=== PATIENT | male | born 1955 | race African-American/Black ===

== ENCOUNTER 2017-01-17 17:37 | Emergency (ER) | payer MEDICAID ==
[~2017-01-17] VITALS: Ht 170.2 cm; Wt 79.4 kg
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
--- NOTE | 2017-01-17 18:17 | NUR ---
PATIENT WAS TAKEN TO RADIOLOGY DEPARTMENT
--- NOTE | 2017-01-17 18:40 | NUR ---
TEXTED DR. LEIVA FOR MRI APPROVAL.
[2017-01-17 18:55] LABS: BASOPHILS # (AUTO) 0.1 /CMM (0.0-0.2); EOSINOPHILS # (AUTO) 0.1 /CMM (0.0-0.7); EOSINOPHILS % (AUTO) 1.3 % (0.0-6.0); HEMATOCRIT 38 % (39-51); HEMOGLOBIN 12.8 g/dL (13.5-17.5); LYMPHOCYTES # (AUTO) 2.1 /CMM (0.8-4.8); LYMPHOCYTES % (AUTO) 31.6 % (20.0-44.0); MEAN CORPUSCULAR HEMOGLOBIN 28 PG (26.0-33.0); MEAN CORPUSCULAR HGB CONC 34 g/dl (31.0-36.0); MEAN CORPUSCULAR VOLUME 83 fL (80-96); MONOCYTES # (AUTO) 0.7 /CMM (0.1-1.30); MONOCYTES % (AUTO) 10.8 % (2.0-12.0); NEUTROPHILS # (AUTO) 3.7 /CMM (1.8-8.9); NEUTROPHILS % (AUTO) 54.3 % (43.0-81.0); PLATELET COUNT (AUTO) 224 /CMM (150-450); RDW COEFFICIENT OF VARIATION 14.2 (11.5-15.0); RED BLOOD CELL COUNT(AUTO) 4.63 MIL/uL (4.5-6.0); WHITE BLOOD COUNT (AUTO) 6.7 K/uL (4.3-11.0)
[2017-01-17 19:06] LABS: CALCIUM, SERUM 9.1 mg/dL (8.5-10.1); CREATININE 1.3 mg/dL (0.6-1.3); POTASSIUM 3.6 mmol/L (3.5-5.1)
[2017-01-17 19:10] LABS: INR 0.89 (0.87-1.13); PROTHROMBIN TIME 9.3 SECS (9.5-12.7)
[2017-01-17 21:56] VITALS: BP 168/100
--- NOTE | 2017-01-17 21:57 | NUR ---
Patient discharged to home in stable condition. Written and verbal after care instructions given. Patient verbalizes understanding of instruction.
== END 2017-01-17 21:57 | disposition home or self-care (01) ==
LOC: ER 17:38
DX: M54.2 Cervicalgia (principal); R79.1 Abnormal coagulation profile; R51 Headache; E11.9 Type 2 diabetes mellitus without complications; I10 Essential (primary) hypertension; V89.2XXA Person injured in unspecified motor-vehicle accident, traffic, initial encounter; Y93.89 Activity, other specified; Y92.89 Other specified places as the place of occurrence of the external cause; Y99.9 Unspecified external cause status
CPT/HCPCS: 36415; 70450; 71010; 72125; 72128; 72131; 72141; 80048; 85025; 85730; 86850; 96374; 99285; A4606; J1100; Z7610

== ENCOUNTER 2020-03-15 12:59 | Inpatient (IN) | payer MEDICAID, OTHER, SELFPAY ==
[~2020-03-15] VITALS: Ht 167.6 cm; Wt 85.3 kg
--- NOTE | 2020-03-15 13:15 | NUR ---
[id number], found him in the car diaphoretic,BS 36, D10 given went up to BS187. Patient a/ox3-4, breathing even and unlabored, no sob noted, needs attended, kept comfortable.
[2020-03-15] MEDS ORDERED: AMLO-213 PO (13:24)
[2020-03-15] MEDS ORDERED: BLOO-668 IN (13:24)
[2020-03-15] MEDS ORDERED: INSU100I26 SQ (13:24)
[2020-03-15] MEDS ORDERED: ASPI-1498 PO (13:24)
[2020-03-15] MEDS ORDERED: INSU100V3 SQ (13:24)
--- NOTE | 2020-03-15 13:42 | NUR ---
BLOOD DRAWN AND SENT TO LAB.
--- NOTE | 2020-03-15 13:54 | NUR ---
COVID SWAB SENT TO LAB.
[2020-03-15 14:12] LABS: BASOPHILS % (AUTO) 0.4 % (0.0-2.0); HEMATOCRIT 34 % (39-51); HEMOGLOBIN 10.9 g/dL (13.5-17.5); LYMPHOCYTES % (AUTO) 18.4 % (20.0-44.0); MEAN CORPUSCULAR HGB CONC 32 g/dl (31.0-36.0); MEAN CORPUSCULAR VOLUME 83 fL (80-96); MONOCYTES # (AUTO) 0.7 /CMM (0.1-1.30); MONOCYTES % (AUTO) 13.9 % (2.0-12.0); NEUTROPHILS # (AUTO) 3.6 /CMM (1.8-8.9); NEUTROPHILS % (AUTO) 67.3 % (43.0-81.0); PLATELET COUNT (AUTO) 224 /CMM (150-450); RED BLOOD CELL COUNT(AUTO) 4.08 MIL/uL (4.5-6.0); WHITE BLOOD COUNT (AUTO) 5.3 K/uL (4.3-11.0)
--- NOTE | 2020-03-15 14:52 | NUR ---
PATIENT UNABLE TO GIVE URINE SAMPLE AT THIS TIME.
[2020-03-15 15:31] LABS: SERUM AMMONIA 37 umol/L (11-32)
--- NOTE | 2020-03-15 15:31 | NUR ---
ORDERED FOOD TRAY.
[2020-03-15 15:35] LABS: ALANINE AMINOTRANSFERASE 30 U/L (12-78); ALBUMIN 2.6 g/dL (3.4-5.0); ALCOHOL, BLOOD < 3 mg/dL (0-0); ALKALINE PHOSPHATASE 43 U/L (46-116); ASPARTATE AMINOTRANSFERASE 37 U/L (15-37); BILIRUBIN,DIRECT 0.1 mg/dL (0.0-0.2); BILIRUBIN,TOTAL 0.3 mg/dL (0.2-1.0); CARBON DIOXIDE 26 mmol/L (21-32); CHLORIDE 102 mmol/L (98-107); GLUCOSE 84 mg/dL (74-106); SODIUM SERUM 139 mmol/L (136-145); TOTAL PROTEIN, SERUM 7.5 g/dL (6.4-8.2)
[2020-03-15 15:37] LABS: CALCIUM, SERUM 8.4 mg/dL (8.5-10.1); CREATININE 2.4 mg/dL (0.6-1.3); POTASSIUM 2.7 mmol/L (3.5-5.1); UREA NITROGEN, BLOOD 35 mg/dL (7-18)
[2020-03-15 15:38] LABS: ACETAMINOPHEN 0 ug/ml (10-30)
--- NOTE | 2020-03-15 15:53 | NUR ---
BED 117-1
[2020-03-15] MEDS ORDERED: POTASSIUM CHLORIDE 20 MEQ TAB.PRT.SR PO ONE (16:00)
[2020-03-15] MEDS ORDERED: HYDROCODONE/APAP 5/325MG TABLET PO PRN (16:00)
[2020-03-15] MEDS ORDERED: ACETAMINOPHEN 325 MG TABLET PO PRN (16:00)
[2020-03-15] MEDS ORDERED: ZOLPIDEM TARTRATE 5 MG TABLET PO PRN (16:00)
[2020-03-15] MEDS ORDERED: MAG HYDROX/AL HYDROX/SIMETH 30 ML UDC PO PRN (16:00)
[2020-03-15] MEDS ORDERED: DEXTROSE 50%-WATER 50 ML DISP.SYRIN IV PRN (16:00)
[2020-03-15] MEDS ORDERED: ONDANSETRON HCL/PF 4 MG/2 ML VIAL IVP PRN (16:00)
[2020-03-15] MEDS: AMLODIPINE BESYLATE 10 MG TABLET PO SCH (16:00)
[2020-03-15] MEDS ORDERED: IV D5/0.45 NACL 1,000 ML IV PRN (16:00)
[2020-03-15] MEDS ORDERED: Z GUARD REMEDY 2 OZ OINT TP PRN (16:00)
[2020-03-15] MEDS ORDERED: MAGNESIUM HYDROXIDE 30 ML UDC PO PRN (16:00)
--- NOTE | 2020-03-15 16:07 | NUR ---
GAVE REPORT TO SONIA IQBAL FOR JOLENE.
--- NOTE | 2020-03-15 16:23 | NUR ---
PATIENT TRANSFERRED TO ROOM 117-1 VIA ACLS PROTOCOL. PATIENT INS TABLE CONDITION. PATIENT AMBULATORY WITH STEADY GAIT. VS STABLE. ENDORSED TO SONIA IQBAL.
[2020-03-15 16:26] LABS: THYROID STIMULATING HORMONE 1.855 uIU/mL (0.358-3.74)
--- NOTE | 2020-03-15 16:30 | NUR ---
ASPHALT COATER ADMITTING NOTES RECEIVED ADMISSION FROM ER. PATIENT IN MEDICALLY STABLE CONDITION ON ROOM AIR. NO COMPLAINS OF PAIN. VS: BP 160/91 HR 87 O2 100 TEMP 98.2 RESP [address]; BED IN LOW POSITION AND LOCKED, RAILS UP X2, CALL LIGHTS WITHIN REACH. WILL CONTINUE TO MONITOR.
[2020-03-15] MEDS ORDERED: ENOXAPARIN SODIUM 30 MG/0.3 ML DISP.SYRIN SQ SCH (17:00)
[2020-03-15] MEDS: BLOOD SUGAR DIAGNOSTIC 1 EACH STRIP IN SCH ×2 (17:35→22:54)
--- NOTE | 2020-03-15 18:36 | NUR ---
RESEARCH GREENHOUSE SUPERVISOR CLOSING NOTES PATIENT RESTING IN BED, A/O X4. PATIENT ON ROOM AIR, SATURATING WELL AT 100%; BREATHING IS EVEN AND UNLABORED, NO SOB PRESENT. NO COMPLAINS OF PAIN. L HAND IV ACCESS G#18 PRESENT AND INTACT. SAFETY PRECAUTIONS REMAIN IN PLACE; BED IN LOW POSITION AND LOCKED, RAILS UP X2, CALL LIGHT WITHIN REACH. WILL ENDORSE TO INCLINED RAILWAY OPERATOR NURSE.
--- NOTE | 2020-03-15 19:40 | NUR ---
RN NOTES PATIENT A/O X4. PATIENT ON ROOM AIR, O2 SAT 100% BREATHING IS EVEN AND UNLABORED, NO SOB. DENIES ANY PAIN OR DISCOMFORT AT THIS TIME. L HAND IV ACCESS G#18 PRESENT AND INTACT. BED LOCKED AND IN LOWEST POSITION. SIDE RAILS UP X2. SAFETY MEASURES IMPLEMENTED. CALL LIGHT WITHIN REACH. WILL CONTINUE TO MONITOR.
[2020-03-15 20:00] VITALS: BP 155/90
[2020-03-15] MEDS: INSULIN REGULAR, HUMAN 100 UNIT/ML 3 ML VIAL SQ PRN (22:03)
[2020-03-15 23:05] LABS: BILIRUBIN,URINE NEGATIVE (NEGATIVE); BLOOD, URINE SMALL Ery/uL (NEGATIVE); COLOR,URINE YELLOW (YELLOW); LEUKOCYTE ESTERASE ,URINE NEGATIVE (NEGATIVE); NITRITE, URINE NEGATIVE (NEGATIVE); PROTEIN,URINE 100 mg/dl (NEGATIVE); UGLUCOSE NEGATIVE (NEGATIVE); UROBILINOGEN,URINE 0.2 EU/dL (0.2)
[2020-03-15 23:10] LABS: BACTERIA,URINE Few /HPF (None Seen)
[2020-03-15 23:12] LABS: SQUAMOUS EPITHELIAL CELL,UR Few /HPF (None Seen)
[2020-03-16] VITALS: BP 152/88
[2020-03-16 04:00] VITALS: BP 160/85
[2020-03-16] MEDS: BLOOD SUGAR DIAGNOSTIC 1 EACH STRIP IN SCH ×2 (07:30→12:00)
--- NOTE | 2020-03-16 07:30 | NUR ---
RN TELE1 PATIENT IN BED, NO S/S OF DISTRESS, A/O X4, ON ROOM AIR, O2 SAT > 95%, BATHROOM PRIVILEGES, AMBULATORY, SKIN INTACT, CCHO DIET, L HAND 18G INTACT CLEAN FLUSHES WELL, RUNNING 1/2 NS @75ML/HR, BED IN LOWEST LOCKED POSITION, CALL LIGHT WITHIN REACH, WILL CONTINUE TO MONITOR.
--- NOTE | 2020-03-16 07:49 | NUR ---
RN NOTES PATIENT A/O X4, ABLE TO MAKE NEEDS KNOWN. NO SOB OR ANY DISTRESS. DENIES ANY PAIN OR DISCOMFORT AT THIS TIME. L HAND IV ACCESS G#18 PRESENT AND INTACT. IV D5 1/2 NS @75ML/HR INFUSING WELL. NO SIGNIFICANT CHANGES IN THIS SHIFT. BED LOCKED AND IN LOWEST POSITION. SIDE RAILS UP X2. SAFETY MEASURES IMPLEMENTED. CALL LIGHT WITHIN REACH. ENDORSED TO ONCOMING SHIFT.
[2020-03-16 08:00] VITALS: BP 160/93
[2020-03-16] MEDS ORDERED: ASPIRIN EC 81 MG TABLET.DR PO SCH (09:00)
[2020-03-16] MEDS: AMLODIPINE BESYLATE 10 MG TABLET PO SCH (09:46)
[2020-03-16] MEDS: INSULIN REGULAR, HUMAN 100 UNIT/ML 3 ML VIAL SQ PRN (09:47)
[2020-03-16 12:00] VITALS: BP 151/88
--- NOTE | 2020-03-16 12:00 | NUR ---
RN TELE1 PATIENT IS RESTING IN BED, GETS UP TO THE BATHROOM, CALLED FOR ASSISTANCE WITH THE IV POLL, TOLERATING AMBULATION WELL.
[2020-03-16 13:16] LABS: BASOPHILS % (AUTO) 0.3 % (0.0-2.0); EOSINOPHILS % (AUTO) 0.5 % (0.0-6.0); HEMATOCRIT 36 % (39-51); HEMOGLOBIN 11.6 g/dL (13.5-17.5); LYMPHOCYTES # (AUTO) 1.7 /CMM (0.8-4.8); LYMPHOCYTES % (AUTO) 33.6 % (20.0-44.0); MEAN CORPUSCULAR HGB CONC 32 g/dl (31.0-36.0); MEAN CORPUSCULAR VOLUME 83 fL (80-96); MONOCYTES # (AUTO) 0.7 /CMM (0.1-1.30); MONOCYTES % (AUTO) 13.7 % (2.0-12.0); NEUTROPHILS # (AUTO) 2.7 /CMM (1.8-8.9); NEUTROPHILS % (AUTO) 51.9 % (43.0-81.0); PLATELET COUNT (AUTO) 283 /CMM (150-450); RED BLOOD CELL COUNT(AUTO) 4.33 MIL/uL (4.5-6.0); WHITE BLOOD COUNT (AUTO) 5.2 K/uL (4.3-11.0)
[2020-03-16 13:35] LABS: CALCIUM, SERUM 8.6 mg/dL (8.5-10.1); CREATININE 1.9 mg/dL (0.6-1.3); MAGNESIUM 2.3 mg/dL (1.8-2.4); PHOSPHORUS 3.1 mg/dL (2.5-4.9); POTASSIUM 3.4 mmol/L (3.5-5.1)
[2020-03-16 13:48] LABS: THYROID STIMULATING HORMONE 1.388 uIU/mL (0.358-3.74)
--- NOTE | 2020-03-16 16:00 | NUR ---
RN TELE1 PATIENT DISCHARGED TO HOME WITH SELF, IS DRIVING SELF HOME, A/OX4, NO S/S OF DISTRESS, REMOVED IV, TELE, AND CLEANED, PROVIDED A T SHIRT, PATIENT WALKED OUT, PROVIDED ALL DISCHARGE PAPER WORKED AND SIGNED ALL DOCUMENTS.
== END 2020-03-16 15:50 | disposition home or self-care (01) | DRG 177 ==
LOC: ER 13:06 → TELE1 16:08 → MEDSG1 03-16 15:16
DX: U07.1 COVID-19 (principal); N17.0 Acute kidney failure with tubular necrosis; E11.649 Type 2 diabetes mellitus with hypoglycemia without coma; D64.9 Anemia, unspecified; E87.6 Hypokalemia; Z79.4 Long term (current) use of insulin; N18.9 Chronic kidney disease, unspecified; I12.9 Hypertensive chronic kidney disease with stage 1 through stage 4 chronic kidney disease, or unspecified chronic kidney disease
CPT/HCPCS: 36415; 70450-TC; 71045-TC; 80048-TC; 80061-TC; 80076-TC; 81001; 82140-TC; 82962-TC; 83735-TC; 84100-TC; 84443-TC; 84484-TC; 85025-TC; 85378-TC; 85730-TC; 87081-TC; 87086-TC; 93308-TC; C9803; G0378; G0480; J1650; J1815; U0003

== ENCOUNTER 2024-05-11 19:18 | Inpatient (IN) | payer MEDICARE, OTHER ==
[~2024-05-11] VITALS: Ht 167.6 cm; Wt 73.2 kg
[2024-05-11] MEDS: CEFTRIAXONE 1 G in IV D5W 50 ML IV SCH (01:40)
[~2024-05-11 19:18] MED LIST: AMLO-213 PO; ASPI-1498 PO; BLOO-668 IN
[2024-05-11 20:29] LABS: BASOPHILS % (AUTO) 0.4 % (0.0-2.0); EOSINOPHILS # (AUTO) 0.1 K/uL (0.0-0.7); EOSINOPHILS % (AUTO) 1.4 % (0.0-6.0); HEMATOCRIT 31 % (39-51); HEMOGLOBIN 9.9 g/dL (13.5-17.5); LYMPHOCYTES # (AUTO) 1.6 K/uL (0.8-4.8); LYMPHOCYTES % (AUTO) 26.4 % (20.0-44.0); MEAN CORPUSCULAR HEMOGLOBIN 30 PG (26.0-33.0); MEAN CORPUSCULAR HGB CONC 33 g/dl (31.0-36.0); MEAN CORPUSCULAR VOLUME 93 fL (80-96); MONOCYTES # (AUTO) 0.5 K/uL (0.1-1.30); MONOCYTES % (AUTO) 8.3 % (2.0-12.0); NEUTROPHILS # (AUTO) 3.9 K/uL (1.8-8.9); NEUTROPHILS % (AUTO) 63.5 % (43.0-81.0); PLATELET COUNT (AUTO) 252 K/uL (150-450); RED BLOOD CELL COUNT(AUTO) 3.29 MIL/uL (4.5-6.0); RED CELL DISTRIBUTION WIDTH 15.4 % (11.5-15.0); WHITE BLOOD COUNT (AUTO) 6.1 K/uL (4.3-11.0)
[2024-05-11] MEDS: IV NS 0.9% 1,000 ML BAG IV ONE (20:30)
[2024-05-11 20:37] LABS: CALCIUM, SERUM 9.3 mg/dL (8.5-10.1)
[2024-05-11 20:44] LABS: ALBUMIN 3.6 g/dL (3.4-5.0); BILIRUBIN,DIRECT 0.1 mg/dL (0.0-0.2); BILIRUBIN,TOTAL 0.2 mg/dL (0.2-1.0); CREATININE 8.6 mg/dL (0.6-1.3); TOTAL PROTEIN, SERUM 7.9 g/dL (6.4-8.2)
[2024-05-11 22:04] LABS: APPEARANCE,URINE Cloudy (CLEAR); BILIRUBIN,URINE Negative (NEGATIVE); BLOOD, URINE Moderate Ery/uL (NEGATIVE); COLOR,URINE YELLOW (YELLOW); KETONES,URINE Trace mg/dL (NEGATIVE); LEUKOCYTE ESTERASE ,URINE Large (NEGATIVE); NITRITE, URINE Negative (NEGATIVE); PROTEIN,URINE 100 mg/dl (NEGATIVE); UGLUCOSE Negative (NEGATIVE); UROBILINOGEN,URINE 0.2 EU/dL (0.2)
[2024-05-11 22:20] LABS: ADD URINE CULTURE YES; BACTERIA,URINE Moderate /HPF (None Seen); WBC,URINE 51-80 /HPF (0-3)
[2024-05-11 22:21] LABS: MUCUS,URINE Rare /LPF (None Seen); SQUAMOUS EPITHELIAL CELL,UR Rare /HPF (None Seen)
[2024-05-11] MEDS ORDERED: MAGNESIUM HYDROXIDE 30 ML UDC PO PRN (22:30)
[2024-05-11] MEDS ORDERED: Z GUARD REMEDY 4 OZ OINT TP PRN (22:30)
[2024-05-11] MEDS ORDERED: ACETAMINOPHEN 325 MG TABLET PO PRN (22:30)
[2024-05-11] MEDS ORDERED: MAG HYDROX/AL HYDROX/SIMETH 30 ML UDC PO PRN (22:30)
[2024-05-11] MEDS: IV NS 0.9% 1,000 ML IV SCH (22:30)
[2024-05-11] MEDS ORDERED: DEXTROSE 50%-WATER 50 ML DISP.SYRIN IV PRN (22:30)
[2024-05-11] MEDS ORDERED: ONDANSETRON HCL/PF 4 MG/2 ML VIAL IVP PRN (22:30)
[2024-05-12] MEDS ORDERED: CEFTRIAXONE 1GM BAG (ER ONLY) 50 ML IV ONE (01:39)
[2024-05-12 03:00] VITALS: BP 122/73; TEMP 97.7; O2SAT 100
[2024-05-12] MEDS: BLOOD SUGAR DIAGNOSTIC 1 EACH STRIP VI SCH (06:18)
[2024-05-12] MEDS: INSULIN REGULAR, HUMAN 100 UNIT/ML 3 ML VIAL SQ PRN (06:18)
[2024-05-12 07:30] VITALS: BP 126/80; TEMP 98.2; O2SAT 96
[2024-05-12 07:41] LABS: BASOPHILS % (AUTO) 0.2 % (0.0-2.0); EOSINOPHILS # (AUTO) 0.1 K/uL (0.0-0.7); EOSINOPHILS % (AUTO) 2.1 % (0.0-6.0); HEMATOCRIT 28 % (39-51); HEMOGLOBIN 9.3 g/dL (13.5-17.5); LYMPHOCYTES # (AUTO) 1.9 K/uL (0.8-4.8); LYMPHOCYTES % (AUTO) 28.1 % (20.0-44.0); MEAN CORPUSCULAR HEMOGLOBIN 31 PG (26.0-33.0); MEAN CORPUSCULAR HGB CONC 33 g/dl (31.0-36.0); MEAN CORPUSCULAR VOLUME 92 fL (80-96); MONOCYTES # (AUTO) 0.6 K/uL (0.1-1.30); MONOCYTES % (AUTO) 8.8 % (2.0-12.0); NEUTROPHILS # (AUTO) 4.1 K/uL (1.8-8.9); NEUTROPHILS % (AUTO) 60.8 % (43.0-81.0); PLATELET COUNT (AUTO) 240 K/uL (150-450); RED BLOOD CELL COUNT(AUTO) 3.02 MIL/uL (4.5-6.0); RED CELL DISTRIBUTION WIDTH 15.2 % (11.5-15.0); WHITE BLOOD COUNT (AUTO) 6.8 K/uL (4.3-11.0)
[2024-05-12 07:51] LABS: CALCIUM, SERUM 8.6 mg/dL (8.5-10.1); MAGNESIUM 2.4 mg/dL (1.8-2.4); POTASSIUM 4.9 mmol/L (3.5-5.1)
[2024-05-12] MEDS ORDERED: CICL6.6S5 TP (08:31)
[2024-05-12] MEDS ORDERED: INSU100V28 SQ (08:31)
[2024-05-12] MEDS ORDERED: BRIM5DRO11 LEFTEYE (08:31)
[2024-05-12] MEDS ORDERED: ACET325T53 PO (08:31)
[2024-05-12] MEDS ORDERED: DEXT15DR23 LEFTEYE (08:31)
[2024-05-12] MEDS ORDERED: PETR113O TP (08:31)
[2024-05-12] MEDS ORDERED: ATOR40TA PO (08:31)
[2024-05-12] MEDS ORDERED: POLY17PO4 PO (08:31)
[2024-05-12] MEDS ORDERED: AMIN30LI2 PO (08:31)
[2024-05-12] MEDS ORDERED: INSU100V7 SQ (08:31)
[2024-05-12] MEDS ORDERED: CARV12.5 PO (08:31)
[2024-05-12] MEDS ORDERED: GUAI100S69 PO (08:31)
[2024-05-12] MEDS ORDERED: NA P133E RC (08:31)
[2024-05-12] MEDS ORDERED: SEVE800T8 PO (08:31)
[2024-05-12] MEDS ORDERED: DORZ10DR11 LEFTEYE (08:31)
[2024-05-12] MEDS ORDERED: LACT10SO58 PO (08:31)
[2024-05-12] MEDS ORDERED: MAGN400O6 PO (08:31)
[2024-05-12] MEDS ORDERED: SENN8.6T19 PO (08:31)
[2024-05-12] MEDS ORDERED: ZINC57OI4 TP (08:31)
[2024-05-12] MEDS ORDERED: VITA1TAB20 PO (08:31)
[2024-05-12] MEDS ORDERED: LOSA100T31 PO (08:31)
[2024-05-12] MEDS ORDERED: MELA3TAB41 PO (08:31)
[2024-05-12] MEDS ORDERED: CHOL200059 PO (08:31)
[2024-05-12] MEDS ORDERED: LATA7.5D LEFTEYE (08:31)
[2024-05-12] MEDS ORDERED: ACET-2030 PO (08:31)
[2024-05-12] MEDS ORDERED: DOCU100T2 PO (08:31)
[2024-05-12] MEDS ORDERED: NIFE-34 PO (08:31)
[2024-05-12] MEDS ORDERED: ASPI-1169 PO (08:31)
[2024-05-12] MEDS ORDERED: GLUC1KIT SQ (08:31)
[2024-05-12] MEDS: AMLODIPINE BESYLATE 10 MG TABLET PO SCH (08:43)
[2024-05-12] MEDS: PANTOPRAZOLE 40 MG VIAL IV SCH (08:43)
[2024-05-12 08:56] LABS: CREATININE 8.4 mg/dL (0.6-1.3)
[2024-05-12 16:00] VITALS: BP 148/84; TEMP 97.7; O2SAT 100
[2024-05-12 20:00] VITALS: BP 148/88; TEMP 97.9; O2SAT 100
[2024-05-13] MEDS: CEFTRIAXONE 1 G in IV D5W 50 ML IV SCH (02:31)
[2024-05-13 07:30] VITALS: BP 163/92; TEMP 98.2; O2SAT 100
[2024-05-13 07:46] LABS: BASOPHILS % (AUTO) 0.4 % (0.0-2.0); EOSINOPHILS # (AUTO) 0.1 K/uL (0.0-0.7); HEMATOCRIT 29 % (39-51); HEMOGLOBIN 9.6 g/dL (13.5-17.5); LYMPHOCYTES # (AUTO) 1.6 K/uL (0.8-4.8); LYMPHOCYTES % (AUTO) 39.6 % (20.0-44.0); MEAN CORPUSCULAR HEMOGLOBIN 31 PG (26.0-33.0); MEAN CORPUSCULAR HGB CONC 33 g/dl (31.0-36.0); MEAN CORPUSCULAR VOLUME 93 fL (80-96); MONOCYTES # (AUTO) 0.4 K/uL (0.1-1.30); MONOCYTES % (AUTO) 9.3 % (2.0-12.0); NEUTROPHILS # (AUTO) 1.9 K/uL (1.8-8.9); NEUTROPHILS % (AUTO) 47.7 % (43.0-81.0); PLATELET COUNT (AUTO) 214 K/uL (150-450); RED BLOOD CELL COUNT(AUTO) 3.15 MIL/uL (4.5-6.0); RED CELL DISTRIBUTION WIDTH 16.1 % (11.5-15.0)
[2024-05-13 08:08] LABS: CALCIUM, SERUM 8.5 mg/dL (8.5-10.1); CREATININE 5.7 mg/dL (0.6-1.3); MAGNESIUM 2.1 mg/dL (1.8-2.4); PHOSPHORUS 4.4 mg/dL (2.5-4.9); POTASSIUM 4.4 mmol/L (3.5-5.1)
[2024-05-13 11:24] LABS: THYROID STIMULATING HORMONE 2.01 uIU/mL (0.358-3.74)
[2024-05-13 16:00] VITALS: BP 147/85; TEMP 98.1; O2SAT 99
[2024-05-13 20:00] VITALS: BP 142/87; TEMP 98.5; O2SAT 99
[2024-05-13] MEDS: *INSULIN REGULAR(HUMULIN R)HUM 100 UNIT/ML VIAL SQ PRN (21:56)
[2024-05-14 04:06] LABS: HEPATITIS B SURFACE AB Reactive (.)
[2024-05-14 07:14] LABS: BASOPHILS % (AUTO) 0.2 % (0.0-2.0); EOSINOPHILS # (AUTO) 0.1 K/uL (0.0-0.7); EOSINOPHILS % (AUTO) 2.6 % (0.0-6.0); HEMATOCRIT 28 % (39-51); HEMOGLOBIN 9.3 g/dL (13.5-17.5); LYMPHOCYTES # (AUTO) 1.7 K/uL (0.8-4.8); LYMPHOCYTES % (AUTO) 35.7 % (20.0-44.0); MEAN CORPUSCULAR HEMOGLOBIN 30 PG (26.0-33.0); MEAN CORPUSCULAR HGB CONC 33 g/dl (31.0-36.0); MEAN CORPUSCULAR VOLUME 91 fL (80-96); MONOCYTES # (AUTO) 0.4 K/uL (0.1-1.30); MONOCYTES % (AUTO) 8.9 % (2.0-12.0); NEUTROPHILS # (AUTO) 2.5 K/uL (1.8-8.9); NEUTROPHILS % (AUTO) 52.6 % (43.0-81.0); PLATELET COUNT (AUTO) 221 K/uL (150-450); RED BLOOD CELL COUNT(AUTO) 3.05 MIL/uL (4.5-6.0); RED CELL DISTRIBUTION WIDTH 15.7 % (11.5-15.0); WHITE BLOOD COUNT (AUTO) 4.8 K/uL (4.3-11.0)
[2024-05-14 07:53] LABS: CALCIUM, SERUM 8.5 mg/dL (8.5-10.1); CREATININE 6.7 mg/dL (0.6-1.3); MAGNESIUM 2.3 mg/dL (1.8-2.4); PHOSPHORUS 5.5 mg/dL (2.5-4.9); POTASSIUM 4.4 mmol/L (3.5-5.1)
[2024-05-14 08:00] VITALS: BP 150/84; TEMP 98.4; O2SAT 100
[2024-05-14] MEDS: PANTOPRAZOLE 40 MG/PACK PACK PO SCH (08:24)
[2024-05-14 16:37] VITALS: BP 126/88; TEMP 98.4; O2SAT 100
[2024-05-14 20:00] VITALS: BP 138/88; TEMP 98.4; O2SAT 100
[2024-05-15 08:41] VITALS: BP 147/92; TEMP 98.2; O2SAT 100
[2024-05-15 09:09] VITALS: BP 147/92
[2024-05-15] MEDS: AMYLASE/LIPASE/PROTEASE 1 CAP CAPSULE.DR PO SCH (09:11)
[2024-05-15] MEDS ORDERED: LIPASE/PROTEASE/AMYLASE 1 EACH CAPSULE.DR PO SCH (18:00)
[2024-05-16 06:08] LABS: FOLIC ACID 7.6 ng/mL (>3.0)
== END 2024-05-15 14:20 | DRG 689 ==
LOC: ER 19:22 → MED 05-12 00:52
PROVIDERS: ATTEND Nurse Practitioner Acute Care
PROC: 5A1D70Z Performance of Urinary Filtration, Intermittent, Less than 6 Hours Per Day (ICD-10-PCS; principal; 2024-05-12)
DX: N39.0 Urinary tract infection, site not specified (principal); G93.41 Metabolic encephalopathy; K85.90 Acute pancreatitis without necrosis or infection, unspecified; N18.6 End stage renal disease; I13.11 Hypertensive heart and chronic kidney disease without heart failure, with stage 5 chronic kidney disease, or end stage renal disease; E87.1 Hypo-osmolality and hyponatremia; Z99.2 Dependence on renal dialysis; E78.5 Hyperlipidemia, unspecified; Z79.4 Long term (current) use of insulin; R53.1 Weakness; D63.8 Anemia in other chronic diseases classified elsewhere; B96.89 Other specified bacterial agents as the cause of diseases classified elsewhere; E11.22 Type 2 diabetes mellitus with diabetic chronic kidney disease; H54.8 Legal blindness, as defined in USA; E83.9 Disorder of mineral metabolism, unspecified; H40.9 Unspecified glaucoma
CPT/HCPCS: 36415; 70450-TC; 71045-TC; 76700-TC; 80048-TC; 80076-TC; 81001; 82607-TC; 82962-TC; 83690-TC; 83735-TC; 83921; 84100-TC; 84425; 84443-TC; 85025-TC; 86706; 87081-TC; 87086-TC; 87340; 90935-TC; 97116-TC; 97530-TC; A4223; G0378; J0696; J1815; J2470; J7030; J7060